=== PATIENT | female | born 1975 | race Caucasian/White ===

== ENCOUNTER → 2016-05-11 | Outpatient (CLI) | payer OTHER ==
[~2016-05-11] MED LIST: ALBUAER19 INH; DIPH25CA37 PO; LAMO200T38 PO; METF-384 PO; NXM/40 PO; PRAM1TAB47; PRAZ1CAP10 PO; SERT-234 PO; TYLOTC500 PO; XNX25 PO; [UNRECOGNIZED DRUG - REMARK] PO
[2016-05-11 14:06] LABS: BLOOD UREA NITROGEN 9 mg/dl (7-18); BUN/CREATININE RATIO 9.1 (10-20); CALCIUM 9.2 mg/dl (8.5-10.1); CARBON DIOXIDE 25 mmol/L (21-32); CHLORIDE 106 mmol/L (98-107); GLUCOSE 172 mg/dl (70-99); POTASSIUM 4.2 mmol/L (3.5-5.1); SODIUM 139 mmol/L (136-145)
[2016-05-11 14:14] LABS: ESTIMATED AVERAGE GLUCOSE 148 mg/dl; HA1C FLAG Normal (Normal)
== END | disposition home or self-care (01) ==
LOC: C.LAB1850 12:34
PROVIDERS: ATTEND Nurse Practitioner Family
DX: E88.81 Metabolic syndrome and other insulin resistance (principal); E11.9 Type 2 diabetes mellitus without complications

== ENCOUNTER → 2016-07-05 | Outpatient (CLI) | payer OTHER ==
[2016-07-05 19:32] LABS: LYME DISEASE AB IGG NEG (NEG); LYME DISEASE AB IGM NEG (NEG)
== END | disposition home or self-care (01) ==
LOC: C.LAB 17:44
PROVIDERS: ATTEND Nurse Practitioner Family
DX: T14.8 Other injury of unspecified body region (principal); W57.XXXA Bitten or stung by nonvenomous insect and other nonvenomous arthropods, initial encounter

== ENCOUNTER → 2017-01-18 | Outpatient (CLI) | payer OTHER ==
[~2017-01-18] MED LIST changes: +LAMO200T35 PO; -LAMO200T38 PO
--- NOTE | 2017-01-18 12:39 | DIAGNOSTIC IMAGING REPORT ---
CHEST 2 VIEWS ROUTINE HISTORY: 41 years-old Female J45.909 [id number] Chest [id number] asthma with acute chest tightness. COMPARISON: CT chest 07/01/2013 TECHNIQUE: PA and lateral views of the chest FINDINGS: Cardiomediastinal and hilar silhouettes are within normal limits. There is no pneumothorax, pleural effusion, focal airspace consolidation or overt pulmonary edema. Mild right hemidiaphragmatic elevation is unchanged. Air-fluid level of the right lower lobe is again noted measuring up to 2.5 cm. IMPRESSION: 1. No acute cardiopulmonary process. 2. 2.5 cm lesion with air-fluid level involving the right lower lobe appears unchanged from comparison chest CT 07/01/2013 suggesting probable pneumatocele. The above report was generated using voice recognition software. It may contain grammatical, syntax or spelling errors. Electronically signed by: Richard Goodson M.D. 01/18/2017 12:38 PM Dictated Date/Time: 01/18/2017 12:36 PM
[2017-01-18 13:14] LABS: BASO % 0.3 %; BASO ABS # 0.03 K/uL (0-0.2); COMPLETE YES; HEMATOCRIT 42.3 % (37-47); IG% 0.3 %; LYMPH % 33.8 %; MEAN CORPUSCULAR HEMOGLOBIN 30.7 pg (25-34); MEAN CORPUSCULAR HGB CONC 33.3 g/dl (32-36); MEAN PLATELET VOLUME 9.7 fL (7.4-10.4); MONO % 6.2 %; NEUT % 58.4 %; PLATELET COUNT 272 K/uL (130-400); WHITE BLOOD COUNT 11.53 K/uL (4.8-10.8)
[2017-01-18 13:18] LABS: CREATININE RANDOM URINE < 13.0 mg/dl
[2017-01-18 13:25] LABS: ESTIMATED AVERAGE GLUCOSE 137 mg/dl; HA1C FLAG Normal (Normal)
[2017-01-18 13:46] LABS: ALT/SGPT 14 U/L (12-78); AST/SGOT 10 U/L (15-37); BLOOD UREA NITROGEN 7 mg/dl (7-18); BUN/CREATININE RATIO 7.7 (10-20); CALCIUM 9.2 mg/dl (8.5-10.1); CARBON DIOXIDE 29 mmol/L (21-32); CHLORIDE 99 mmol/L (98-107); GLUCOSE 164 mg/dl (70-99); POTASSIUM 3.3 mmol/L (3.5-5.1); SODIUM 133 mmol/L (136-145)
[2017-01-18 13:57] LABS: ALB/GLOB RATIO 0.9 (0.9-2)
[2017-01-18 13:58] LABS: ALKALINE PHOSPHATASE 77 U/L (45-117)
== END | disposition home or self-care (01) ==
LOC: C.RAD1850 12:14
PROVIDERS: ATTEND Nurse Practitioner Family
DX: R07.89 Other chest pain (principal); J45.909 Unspecified asthma, uncomplicated; F41.9 Anxiety disorder, unspecified; F32.9 Major depressive disorder, single episode, unspecified; K21.0 Gastro-esophageal reflux disease with esophagitis; E78.00 Pure hypercholesterolemia, unspecified; E88.81 Metabolic syndrome and other insulin resistance; E11.9 Type 2 diabetes mellitus without complications

== ENCOUNTER → 2017-01-19 | Outpatient (CLI) | payer OTHER ==
[2017-01-19 14:45] LABS: CHOLESTEROL/HDL RATIO 2.9
== END | disposition home or self-care (01) ==
LOC: C.LAB1850 12:48
PROVIDERS: ATTEND Nurse Practitioner Family
DX: F41.9 Anxiety disorder, unspecified (principal); F32.9 Major depressive disorder, single episode, unspecified; K21.0 Gastro-esophageal reflux disease with esophagitis; E78.00 Pure hypercholesterolemia, unspecified; E88.81 Metabolic syndrome and other insulin resistance; J45.909 Unspecified asthma, uncomplicated; E11.9 Type 2 diabetes mellitus without complications; R07.89 Other chest pain

== ENCOUNTER → 2017-02-19 | Day surgery (SDC) | payer OTHER ==
[2017-02-13 15:52] VITALS: Ht 157.5 cm; Wt 69.1 kg
[~2017-02-19] VITALS: Ht 157.5 cm; Wt 69.1 kg
[~2017-02-19] MED LIST changes: -ALBUAER19 INH; +ALPR0.25 PO; +BUPR-79 PO; -DIPH25CA37 PO; +LAMO1TAB21 PO; -LAMO200T35 PO; +LIDOCAINE HCL 2% 2 ML VIAL (20MG/ML) ONE; +MRP5 PO; -PRAM1TAB47; -PRAZ1CAP10 PO; +PRAZ1CAP28 PO; +PROPOFOL IV EMULSION 10 MG/ML 20 ML VIAL IV ONE; +SIMV10TA2 PO; +SODIUM CHLORIDE 0.9% 500ML 500 ML IV ONE; +TRAZ100T29 PO; -TYLOTC500 PO; +VNTHFA/IN INH; -XNX25 PO; -[UNRECOGNIZED DRUG - REMARK] PO
--- NOTE | 2017-02-19 15:23 | Endo History and Physical ---
History & Physical Date of Service: Feb 19, 2017. Chief Complaint: CHEST TIGHTNESS, DYSPHAGIA, NAUSEA Referring Physician: CRISTOFER ALEXANDER History of Present Illness 41 yo CF who presents for EGD secondary to esophageal dysphagia. Past Surgical History Hx Cardiac Surgery: No Hx Internal Defibrillator: No Hx Pacemaker: No Hx Abdominal Surgery: Yes (UMBILICAL HERNIA, OVARIAN CYST REMOVAL, X 3, TUBAL, UTERINE ABLAT) Hx of Implantable Prosthesis: No Hx Post-Op Nausea and Vomiting: No Hx Cancer Surgery: No Hx Thoracic Surgery: No Hx Orthopedic: Yes (RT/LEFT CTR) Hx Urinary Tract Surgery: No Family History IBD Social History Smoking Status: Current Every Day Smoker Hx Substance Use: No Hx Alcohol Use: Yes (RARELY) Allergies Coded Allergies: Metronidazole (Verified Allergy, Severe, TROUBLE BREATHING, 02/13/17) TROUBLE BREATHING Azithromycin (Verified Allergy, Mild, TROUBLE BREATHING, 02/13/17) Cephalosporins (Verified Allergy, Unknown, TROUBLE BREATHING, 02/13/17) Iodinated Contrast Media (Verified Allergy, Unknown, TROUBLE BREATHING, 02/13/17) NUTS (Verified Allergy, Unknown, ANAPHYLAXIS, 02/13/17) CAN TOLERATE PEANUTS Wasp (Verified Allergy, Unknown, ANAPHYLAXIS, 02/13/17) Paroxetine (Verified Adverse Reaction, Unknown, DROP IN BP, 02/13/17) Current Medications Reported Home Medications Medications Dose Route/Sig Max Daily Dose Days Date Category Trazodone (Trazodone HCl) 100 Mg Tab 1-2 Tab PO HS PRN 02/13/17 Reported Prazosin (Prazosin Hcl) 1 Mg Cap 2 Mg PO HS 02/13/17 Reported Lamotrigine 100 Mg Tab 1 Tab PO BID 02/13/17 Reported Xanax (Alprazolam) 0.25 Mg Tab 0.25 Mg PO QAM 02/13/17 Reported Xanax (Alprazolam) 0.25 Mg Tab 2 Tab PO HS 30 02/13/17 Reported Xanax (Alprazolam) 0.25 Mg Tab 1 Tab PO DAILY PRN 30 02/13/17 Reported Wellbutrin Sr (Bupropion HCl) 150 Mg Ertab 150 Mg PO QAM 02/13/17 Reported Zoloft (Sertraline HCl) 100 Mg Tab 100 Mg PO QAM 02/13/17 Reported Pramipexole Dihydrochlori (Pramipexole Dihydrochloride) 0.5 Mg Tab 2 Tab PO HS 02/13/17 Reported Ventolin Hfa (Albuterol) 200 Puffs/[id number] Mcg Aers 2-4 Puffs INH Q6H PRN 02/13/17 Reported Nexium (Esomeprazole Magnesium) 40 Mg Capcr 40 Mg PO QAM 02/13/17 Reported Glucophage (Metformin Hcl) 1,000 Mg Tab 1,000 Mg PO BID 02/13/17 Reported Zocor (Simvastatin) 10 Mg Tab 10 Mg PO QPM 02/13/17 Reported Vital Signs Weight (Kilograms): 69.09 Height (Feet): 5 Height (Inches): 2 Date Time Temp Pulse Resp B/P (MAP) Pulse Ox O2 Delivery O2 Flow Rate FiO2 02/19/17 14:26 37.1 116 20 143/75 (97) 97 Room Air Physical Exam General Appearance: WD/WN, no apparent distress Respiratory/Chest: Auscultation: breath sounds normal Cardiovascular: Heart Auscultation: RRR Abdomen: Bowel Sounds: normal Inspection & Palpation: soft, non-distended, no tenderness, guarding & rebound Assessment and Plan Assessment: 41 yo CF who presents for EGD secondary to esophageal dysphagia. Plan: Proceed with EGD.
--- NOTE | 2017-02-19 15:44 | Discharge Instructions ---
Endoscopy Patient Instructions Date / Procedure(s) Performed Feb 19, 2017. EGD Allergy Information Coded Allergies: Metronidazole (Verified Allergy, Severe, TROUBLE BREATHING, 02/13/17) TROUBLE BREATHING Azithromycin (Verified Allergy, Mild, TROUBLE BREATHING, 02/13/17) Cephalosporins (Verified Allergy, Unknown, TROUBLE BREATHING, 02/13/17) Iodinated Contrast Media (Verified Allergy, Unknown, TROUBLE BREATHING, 02/13/17) NUTS (Verified Allergy, Unknown, ANAPHYLAXIS, 02/13/17) CAN TOLERATE PEANUTS Wasp (Verified Allergy, Unknown, ANAPHYLAXIS, 02/13/17) Paroxetine (Verified Adverse Reaction, Unknown, DROP IN BP, 02/13/17) Discharge Date / Findings Feb 19, 2017. Gastritis s/p biopsies Provider Instructions Activity Restrictions - No exercising or heavy lifting for 24 hours. - Do not drink alcohol the day of the procedure. - Do not drive a car or operate machinery until the day after the procedure. - Do not make any important decisions or sign important papers in 24 hours after the procedure. Following Day: - Return to full activity which may include returning to work/school. Diet Start your diet with liquids and light foods (jello, soup, juice, toast). Then eat your usual diet if not nauseated. Treatment For Common After Affects For mild abdominal pain, bloating, or excessive gas: - Rest - Eat lightly - Lie on right side Follow-Up Information Follow-up with CRISTOFER ALEXANDER as scheduled Anesthesia Information What You Should Know You have had a procedure that required some medicine to reduce anxiety and discomfort. This treatment is called moderate sedation. After receiving the treatment, you may be sleepy, but you will be able to breathe on your own. The effects of the treatment may last for several hours. Follow these instructions along with Activity/Diet recommendations noted above: * Do NOT do anything where dizziness or clumsiness would be dangerous. * Rest quietly at home today, then you can be up and about tomorrow. * Have a responsible person stay with you the rest of today. * You may have had an I.V. today. If so, you may take the dressing off later today. Recommendations Call your doctor if: * Trouble breathing * Continuous vomiting for more than 24 hours * Temperature above 101 degrees * Severe abdominal pain or bloating * Pain not relieved by pain medicine ordered * There is increased drainage or redness from any incision * A large amount of rectal bleeding greater than 2-3 tablespoons. (If you had a polyp/s removed or have hemorrhoids, a small amount of blood - from the rectum is to be expected.) * You have any unanswered questions or concerns. IN THE EVENT OF A SERIOUS EMERGENCY, GO TO THE NEAREST EMERGENCY ROOM Your discharge instructions were prepared by provider Loi Romero. Patient Instructions Signature Page Irina Douglass Patient (or Guardian) Signature/Date: I have read and understand the instructions given to me by my caregivers. Caregiver/RN/Doctor Signature/Date: The above-named patient and/or guardian has received patient instructions on this date. + Original Patient Signature Page (only) stays with chart. Please make copy for patient.
--- NOTE | 2017-02-19 15:49 | GI REPORT ---
Procedure Date: 02/19/2017 2:59 PM Procedure: Upper GI endoscopy Indications: Dysphagia Medicines: Monitored Anesthesia Care Complications: No immediate complications. Estimated Blood Loss: Estimated blood loss: none. Procedure: Pre-Anesthesia Assessment: - Prior to the procedure, a History and Physical was performed, and patient medications and allergies were reviewed. The patient's tolerance of previous anesthesia was also reviewed. The risks and benefits of the procedure and the sedation options and risks were discussed with the patient. All questions were answered, and informed consent was obtained. Prior Anticoagulants: The patient has taken no previous anticoagulant or antiplatelet agents. ASA Grade Assessment: II - A patient with mild systemic disease. After reviewing the risks and benefits, the patient was deemed in satisfactory condition to undergo the procedure. After obtaining informed consent, the endoscope was passed under direct vision. Throughout the procedure, the patient's blood pressure, pulse, and oxygen saturations were monitored continuously. The scope was introduced through the mouth, and advanced to the second part of duodenum. The upper GI endoscopy was accomplished without difficulty. The patient tolerated the procedure well. Findings: The esophagus was normal. Localized mild inflammation characterized by erythema was found in the gastric antrum. Biopsies were taken with a cold forceps for histology. The examined duodenum was normal. Impression: - Normal esophagus. - Gastritis. Biopsied. - Normal examined duodenum. Recommendation: - Resume previous diet. - Continue present medications. - Await pathology results. - Return to primary care physician as previously scheduled. Loi Romero DO 02/19/2017 3:48:51 PM This report has been signed electronically. Note Initiated On: 02/19/2017 2:59 PM I attest to the content of the Intraoperative Record and orders documented therein, exceptions below
--- NOTE | 2017-02-19 16:06 | Anesthesiology Progress Note ---
Anesthesia Post Op Note Date & Time Feb 19, 2017 at 16:06 Vital Signs Pain Intensity: 0 Vital Signs Past 12 Hours Date Time Temp Pulse Resp B/P (MAP) Pulse Ox O2 Delivery O2 Flow Rate FiO2 02/19/17 15:54 37.0 89 20 105/49 (67) 95 Room Air 02/19/17 14:26 37.1 116 20 143/75 (97) 97 Room Air Notes Mental Status: alert / awake / arousable, participated in evaluation Pt Amnestic to Procedure: Yes Nausea / Vomiting: adequately controlled Pain: adequately controlled Airway Patency, RR, SpO2: stable & adequate BP & HR: stable & adequate Hydration State: stable & adequate Anesthetic Complications: no major complications apparent
[2017-02-19 16:23] VITALS: BP 122/67; PULSE 90; O2SAT 98
== END | disposition home or self-care (01) ==
LOC: C.GI 14:00
PROVIDERS: ATTEND Internal Medicine
DX: K29.50 Unspecified chronic gastritis without bleeding (principal); Z83.79 Family history of other diseases of the digestive system; F17.200 Nicotine dependence, unspecified, uncomplicated; E78.5 Hyperlipidemia, unspecified; K21.9 Gastro-esophageal reflux disease without esophagitis; J45.909 Unspecified asthma, uncomplicated; E11.42 Type 2 diabetes mellitus with diabetic polyneuropathy; G25.81 Restless legs syndrome; F32.9 Major depressive disorder, single episode, unspecified; Z79.899 Other long term (current) drug therapy

== ENCOUNTER → 2017-03-20 | Outpatient (CLI) | payer OTHER ==
[~2017-03-20] MED LIST changes: -LIDOCAINE HCL 2% 2 ML VIAL (20MG/ML) ONE; -PROPOFOL IV EMULSION 10 MG/ML 20 ML VIAL IV ONE; -SODIUM CHLORIDE 0.9% 500ML 500 ML IV ONE
--- NOTE | 2017-03-20 09:49 | DIAGNOSTIC IMAGING REPORT ---
ABDOMEN COMPLETE (US) HISTORY: Nausea. Pain. R14.0 Abdominal [id number]. COMPARISON: None. FINDINGS: Pancreas: The pancreas demonstrates a normal echotexture. Liver: Mild fatty infiltration Gallbladder: No gallbladder wall thickening. No gallstones. CBD: 3 mm Kidneys: 4 mm nonobstructing cortical calcification right kidney. No evidence for renal hydronephrosis. Spleen: Normal in size. Aorta: Normal in caliber. IVC: Patent. IMPRESSION: No significant abnormality identified within the within the abdomen. Mild fatty infiltration of liver. 4 mm nonobstructing calcification right kidney. The above report was generated using voice recognition software. It may contain grammatical, syntax or spelling errors. Electronically signed by: Quincy Greenberg M.D. 03/20/2017 9:48 AM Dictated Date/Time: 03/20/2017 9:46 AM
== END | disposition home or self-care (01) ==
LOC: C.ULTR 08:47
PROVIDERS: ATTEND Registered Nurse
DX: R14.0 Abdominal distension (gaseous) (principal)

== ENCOUNTER → 2017-04-23 | Outpatient (CLI) | payer OTHER ==
[2017-04-23 12:17] LABS: BASO % 0.3 %; BASO ABS # 0.03 K/uL (0-0.2); EOS % 1.8 %; EOS ABS # 0.19 K/uL (0-0.5); HEMATOCRIT 42.3 % (37-47); HEMOGLOBIN 14.1 g/dL (12.0-16.0); IG# 0.02 K/uL (0.00-0.02); LYMPH % 35.8 %; LYMPH ABS # 3.85 K/uL (1.2-3.4); MEAN CELL VOLUME 92.8 fL (80-100); MEAN CORPUSCULAR HEMOGLOBIN 30.9 pg (25-34); MEAN CORPUSCULAR HGB CONC 33.3 g/dl (32-36); MONO % 6.8 %; MONO ABS # 0.73 K/uL (0.11-0.59); NEUT % 55.1 %; NEUT ABS # 5.93 K/uL (1.4-6.5); PLATELET COUNT 286 K/uL (130-400); RED CELL DISTRIBUTION WIDTH CV 13.2 % (11.5-14.5); RED CELL DISTRIBUTION WIDTH SD 44.9 fL (36.4-46.3); WHITE BLOOD COUNT 10.75 K/uL (4.8-10.8)
[2017-04-23 12:44] LABS: ALBUMIN 3.5 gm/dl (3.4-5.0); ALT/SGPT 14 U/L (12-78); BLOOD UREA NITROGEN 10 mg/dl (7-18); CALCIUM 8.6 mg/dl (8.5-10.1); CARBON DIOXIDE 27 mmol/L (21-32); CREATININE 0.98 mg/dl (0.60-1.20); GLUCOSE 117 mg/dl (70-99); POTASSIUM 3.8 mmol/L (3.5-5.1); SODIUM 138 mmol/L (136-145)
[2017-04-23 12:55] LABS: ALKALINE PHOSPHATASE 61 U/L (45-117); AST/SGOT 10 U/L (15-37); TOTAL PROTEIN 7.4 gm/dl (6.4-8.2)
== END | disposition home or self-care (01) ==
LOC: C.LAB1850 09:57
PROVIDERS: ATTEND Physician Assistant
DX: R26.89 Other abnormalities of gait and mobility (principal); R29.6 Repeated falls

== ENCOUNTER → 2017-04-24 | Outpatient (CLI) | payer OTHER ==
[~2017-04-24] MED LIST changes: +GADAVIST IV PRN
--- NOTE | 2017-04-24 19:52 | DIAGNOSTIC IMAGING REPORT ---
MRI OF THE BRAIN WITHOUT AND WITH IV CONTRAST CLINICAL HISTORY: Frequent falls. Abnormal brain scan. Evaluate for stroke. COMPARISON STUDY: MRI the brain March 28, 2011. TECHNIQUE: Utilizing a 1.5 Dionne magnet and dedicated coil, multiplanar, multiecho imaging of the brain was performed pre and postcontrast administration. IV administration of 7 mL of Gadavist contrast was uneventful. FINDINGS: There are no foci of restricted diffusion. No acute intracranial hemorrhage, midline shift or mass effect is present. Ventricular system is normal. Basilar cisterns are patent. There are no extra-axial collections. Flow-voids for the major intracranial vessels are present. There are no intracranial masses or foci of pathologic enhancement. There are numerous small white matter T2 hyperintense foci which are similar to exam of March 28, 2011. Calvarial signal is normal. Orbits and sinuses are unremarkable. IMPRESSION: 1. No acute intracranial findings. 2. No intracranial mass or pathologic enhancement. 3. No change in multiple small white matter T2 hyperintense foci since MRI March 28, 2011. These remain nonspecific and may reflect small vessel disease, sequela of migraine headaches or demyelinating process although the imaging findings are not typical for multiple sclerosis. Electronically signed by: Julio Dunn M.D. 04/24/2017 7:51 PM Dictated Date/Time: 04/24/2017 7:40 PM
== END | disposition home or self-care (01) ==
LOC: C.MRI 18:24
PROVIDERS: ATTEND Psychiatry & Neurology Neurology
DX: R26.89 Other abnormalities of gait and mobility (principal); R94.02 Abnormal brain scan; R29.6 Repeated falls